=== PATIENT | female | born 1940 | race Caucasian/White ===

== ENCOUNTER 2017-07-27 12:06 | Emergency (ER) | payer MEDICARE ==
[~2017-07-27] VITALS: Ht 170.2 cm; Wt 74.8 kg
[2017-07-27] MEDS ORDERED: ASPIRIN 81MG TA81 MG PO (12:20)
[2017-07-27] MEDS ORDERED: TRAMADOL 50MG T50 M1 PO (12:20)
--- NOTE | 2017-07-27 12:21 | Emergency Room Report ---
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 N Clinical Suspician of Infection? N Mental Status: 1 - Regular (Normal Baseline) Sepsis Risk:Low Sepsis Risk Have you (or family members/close friends) recently traveled outside the [place]? N If Yes, where/when: Have you had exposure to infectious disease within the past month? TB? Other? Specify: Comment Patient complains of sinus drainage, postnasal drip, and cough for 3 weeks. Her nasal drainage and her phlegm are clear. She has felt sweaty at times, but no documented fever. She has some difficulty breathing from all of the drainage, sometimes at night when she lays down it will cut off her air. Family says they called the ambulance a couple of weeks ago because she would stop breathing when she lay down. She was not transported to the hospital because by the time ambulance would arrive, she would be fine. She was seen at her primary care physician's office, about 2-1/2-3 weeks ago and received a steroid shot. She got worse afterwards. She has also been on prednisone. She was not initially put on an antibiotic, she says that Dr. York normally would put her on one, but she saw somebody else in the office because he was not in. She was called in a prescription for Cefdinir on 2 days ago and has had 4 doses. Family is concerned because she is not getting better. She stopped taking her steroids a couple of days ago, did not take the last 1-1/2 pills, because she felt like it made her drainage worse. She says that she has a history of scarred lungs. She has recently had a CT scan of her chest at [facility], which showed scarring but no cancer. ALLERGIES Coded Allergies: No Known Allergies (07/27/17) Home Medications Reported Medications ASPIRIN (Aspirin) 81 MG PO QHS TRAMADOL HCL (Tramadol) 50 MG PO QPRN Cefdinir 300 MG PO BID Prednisone (Prednisone 20MG) 20 MG PO BID History Medical History General More? No Immunization Hx Ped.Immunizations UTD Yes DT/Tetanus 1-4 Years Ago Surgical Hx Previous Surgery?N Social History Smoking Hx Smoker: Former Smoker Tobacco: Yes Type Cigarettes Packs/day N/A Are you/the child exposed to second-hand smoke: No Review of Systems All Other Systems Reviewed and Negative Constitutional diaphoresis ENT nose discharge. Respiratory cough, shortness of breath Physical Exam Vital Signs Vital Signs Date Time Temp Pulse Resp B/P Pulse O2 O2 Flow FiO2 Ox Delivery Rate 07/27 1337 85 18 102/75 92 07/27 1320 85 18 103/59 92 07/27 1211 98.4 85 18 101/53 92 General Appearance normal appearance, WD/WN Eye Exam - bilateral eye normal exam, bilateral eye PERRL, bilateral eye EOMI Ear, Nose, Throat hearing grossly normal, normal ENT inspection Neck normal inspection, non-tender, supple, full range of motion Respiratory Status Yes: trachea midline, chest symmetrical, productive cough (clear phlegm). No: respiratory distress. Lung Sounds bilateral: normal breath sounds, lungs clear. 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 No Results/Orders Orders Procedure Date/time Status CHEST(2 VIEWS-NOT PORTABLE) 07/27 1231 Active XRAY/CT/US XRAY/CT/US XRAY chest Comment X-ray interpreted by Ezra Barragan M.D.: severe chronic obstructive pulmonary disease. Interstitial disease RIGHT upper and lower lung, fibrosis versus infiltrate. No old x-rays for comparison. Progress - 1:20 PM: The patient declines nebulizer treatments. I discussed her x-ray. I cannot definitively say whether she has pneumonia, given her underlying pulmonary fibrosis. She does not want to be admitted to the hospital. She does not want further treatment in the emergency room. She has had 4 doses thus far of her antibiotic, I do not feel it should be changed at this point. She says she is not currently short of breath she is conversing normally sitting upright on the side of the bed with her legs crossed. She appears stable and in no distress. She says she wants to be discharged home and I feel this is reasonable. She does not want a nebulizer for use at home, I offered this as well. She does not want to be on steroids because they make her drainage worse. I advised her to continue her current antibiotics and follow up with Dr. York this week. We will provide her with a disc of her chest x-ray to take to [facility] for comparison. Departure Departure Disposition DC Home or Self Care(routine) Clinical Impression Primary Impression: Upper respiratory infection Qualifiers: URI type: unspecified URI Qualified Code: J06.9 - Acute upper respiratory infection, unspecified Condition STABLE Referrals Chela GARNER,Jovany Rodríguez (Family) Additional Instructions Continue current treatment including current antibiotics. Continue inhalers. Follow-up with Dr. York on Saturday. You are being provided with a disc of your chest x-ray which may be taken to [facility] for comparison to previous films. Alternatively, you can obtain an x-ray from [facility] to be brought here for comparison. Return to the emergency department if worsening shortness of breath, fever. ED Critical Care Critical Care No
[2017-07-27] MEDS ORDERED: CEFDINIR300 MG PO (12:23)
[2017-07-27] MEDS ORDERED: PREDNISONE 20MG20 MG PO (12:23)
[2017-07-27 13:37] VITALS: BP 102/75
--- NOTE | 2017-07-27 13:49 | RADIOLOGY REPORT PS360 ---
CHEST(2 VIEWS-NOT PORTABLE) HISTORY: cough for 3 wks, smoker, emphysema ORDERING PHYSICIAN: Ezra Barragan MD PATIENT AGE: 77 years COMPARISON: None available FINDINGS: The cardiomediastinal silhouette and pulmonary vascularity are within normal limits. There are no previous studies available for comparison. There is hyperinflation with diffuse interstitial fibrotic change. Patchy density is present in the right upper and right lower lobe which could be related to superimposed pneumonia. Correlation with old films needed.. No acute bony abnormalities. IMPRESSION: COPD with pulmonary fibrosis More extensive fibrotic changes versus pneumonia in the right upper and right lower lobe
== END 2017-07-27 13:37 | disposition home or self-care (01) ==
LOC: ER 12:06
DX: J06.9 Acute upper respiratory infection, unspecified (principal); Z87.891 Personal history of nicotine dependence; T38.0X6A Underdosing of glucocorticoids and synthetic analogues, initial encounter; Z91.128 Patient's intentional underdosing of medication regimen for other reason; Z79.899 Other long term (current) drug therapy; J84.10 Pulmonary fibrosis, unspecified